=== PATIENT | female | born 1990 ===

== ENCOUNTER 2017-04-20 17:37 | Inpatient (IN) | payer MEDICAID, OTHER ==
--- NOTE | 2017-04-20 18:17 | OBADHP ---
Datetime: 04/20/2017 18:10 IP Chief Complaint Other: post dates Admit Comment, IP Provider: admit to unit and place cervidil after initial monitoring and blood work Extremities - PN: Normal Abdomen - PN: Abnormal Back - PN: Normal Breast - PN: Normal Lungs - PN: Normal Heart - PN: Normal Thyroid - PN: Normal Neurologic - PN: Normal HEENT - PN: Normal General - PN: Normal Presentation-Admit: cephalic FHR - Baseline A Provider: 150's Membranes, Provider: Intact Contraction Comments Provider: irreg Comments, ACOG Physical Exam: ABd gravid fundus at term, ext no calf tenderness Gestation - Est Wks by US: [id number] IP Chief Complaint: Uterine contractions NICHD Variability Prov Fetus A: Minimal - Undetectable to <5bpm NICHD Accel Fetus A IP Provider: [id number] NICHD Decel Fetus A IP Provider: None Dilatation, Provider: ft Effacement, Provider: none Genitourinary Exam: Normal DTRs - PN: Normal IP Adm Impression: Postterm, intrauterine IP Admit Plan: Admit to unit; Initiate labor induction protocol
[2017-04-20 18:38] VITALS: BMI 38.5
[2017-04-20] MEDS: Lactated Ringer's 1,000 ML IV SCH (18:45)
[2017-04-20 19:46] LABS: BASO % 0.2 % (0.0-2.0); EOS # 0.1 K/uL (0.0-0.7); EOS % 1.4 % (0.0-4.0); HEMOGLOBIN 12.8 g/dL (12.0-16.0); LYMPH # 1.1 K/uL (1.0-4.3); LYMPH % 15.7 % (20.0-40.0); MEAN CELL VOLUME 90.1 fl (81.0-99.0); MEAN CORPUSCULAR HGB CONC 33.3 g/dL (33.0-37.0); MEAN PLATELET VOLUME 8.6 fl (7.2-11.7); MONO # 0.7 K/uL (0.0-0.8); MONO % 9.6 % (0.0-10.0); NEUT # 5.3 K/uL (1.8-7.0); NEUT % 73.1 % (50.0-75.0); RBC 4.27 Mil/uL (3.80-5.20); WHITE BLOOD COUNT 7.3 K/uL (4.8-10.8)
[2017-04-21] MEDS: Lactated Ringer's 1,000 ML IV SCH (02:30)
[2017-04-21] MEDS ORDERED: Fentanyl/Bupivacaine HCl 250 ML EPI ONE (03:05)
--- NOTE | 2017-04-21 05:33 | OBDS ---
MATERNAL INFORMATION Estimated Blood Loss (ml): 200cc Maternal Complications: None Provider Comments: Delivered a living Baby girl appears term cried spontaneously 9/9,One loose loop of cord around the neck undone prior to full delivery. Af clear Placenta complete and intact N o lacerations or tears noted. Tolerated procedure well no complications Rectal no defects LABOR SUMMARY EDC: 04/16/2017 00:00 No. Babies in Womb: 1 LABOR INFORMATION Reason for Induction: Postterm Cervical Ripening Agents: Cervidil Group B Beta Strep: Negative Steroids Given: None Reason Steroids Not Administered: Not Applicable VAGINAL DELIVERY Episiotomy: None Laceration Extension: N/A Laceration Type: None Laceration Repair: Not Applicable Laceration Repair Note: none Sponge Count Correct: Yes Sharps Count Correct: N/A Count Comment: Pad count correct CSECTION DELIVERY Primary Indication: N/A Secondary Indication: N/A CSection Incision: N/A BABY A INFORMATION Forceps: N/A Vacuum Extraction: N/A Shoulder Dystocia : No
[2017-04-21] MEDS: Oxycodone/Acetaminophen 5/325 mg Tab PO PRN ×2 (11:47→20:38)
[2017-04-22] MEDS: Oxycodone/Acetaminophen 5/325 mg Tab PO PRN ×4 (02:38→22:27)
[2017-04-22 06:27] LABS: HEMOGLOBIN 13.9 g/dL (12.0-16.0); MEAN CELL VOLUME 89.2 fl (81.0-99.0); MEAN CORPUSCULAR HEMOGLOBIN 30.4 pg (27.0-31.0); MEAN CORPUSCULAR HGB CONC 34.1 g/dL (33.0-37.0); RBC 4.57 Mil/uL (3.80-5.20); RED CELL DISTRIBUTION WIDTH 15.9 % (11.5-14.5); WHITE BLOOD COUNT 8.1 K/uL (4.8-10.8)
--- NOTE | 2017-04-22 12:40 | OBPPN ---
Datetime: 04/22/2017 12:36 PP Pain Prov: Within normal limits PP Pain Prov comment: no SOB chest pains or leg pains PP Nausea Prov: Denies PP Flatus Prov: Yes PP BM Prov: Yes PP Breasts Prov: Normal PP Heart Prov: Normal PP Lungs Prov: Normal PP Abdomen/Uterus Prov: Abnormal PP Lochia Prov: Normal PP Vulva/Perineum Prov: Normal PP CVA Tenderness Prov: Normal PP Extremities Prov: Normal PP C/S Incision Prov: Not Applicable PP Progress Prov: Normal PP Comments Phys Exam Prov: Abd soft ND no rebound fundus firm at umb NT Ext no leg edema or calf t enderness PP Impression Prov: Normal progression PP Plan Prov: Continue present management PP Progress Note Prov: OOB and ambulation, increase po fluids and continue PP care IP PP Procedures: None Vital Signs Provider PP: Reviewed
[2017-04-23] MEDS: Oxycodone/Acetaminophen 5/325 mg Tab PO PRN ×2 (03:49→08:46)
--- NOTE | 2017-04-23 11:34 | OBPPN ---
Datetime: 04/23/2017 11:31 PP Pain Prov: Within normal limits PP Nausea Prov: Denies PP Flatus Prov: Yes PP BM Prov: No PP Breasts Prov: Normal PP Heart Prov: Normal PP Lungs Prov: Normal PP Abdomen/Uterus Prov: Normal PP Lochia Prov: Normal PP Vulva/Perineum Prov: Normal PP CVA Tenderness Prov: Normal PP Extremities Prov: Normal PP Progress Prov: Normal PP Impression Prov: Normal progression PP Plan Prov: Continue present management PP Progress Note Prov: stable ppd2 continue care dc home today IP PP Procedures: None Vital Signs Provider PP: Reviewed; Within Normal Limits
--- NOTE | 2017-04-23 11:37 | OBDCSUM ---
Datetime: 04/23/2017 11:34 Discharged to, Provider: Home Follow up at, Provider: Liset Disch Instr Diet: Regular Discharge Instructions, Provider: Routine instructions given Discharge Diagnosis, Provider: Term Delivered Discharge Time: 04/23/2017 11:34 Follow up in weeks, Provider: 5-6 weeks Disch Referrals: None Disch Activity Restrictions: No exercising; No lifting; No driving; Minimize walking; Minimize stair -climbing; No sexual activity; Nothing in vagina - [place], tampons, douche Contraception after Delivery: Undecided Datetime: 04/23/2017 10:26 Discharged to, Provider: Home Follow up at, Provider: Thierry AQUINO Instr Activity: Normal activity Disch Instr Diet: Regular Follow up in weeks, Provider: 6 weeks Disch Activity Restrictions: No exercising
== END 2017-04-23 14:00 | disposition home or self-care (01) | DRG 373 ==
LOC: H.EROB2 17:37 → H.L&D 18:30 → H.OB/GYN 04-21 16:09
PROVIDERS: ADMIT Specialist; ATTEND Specialist
PROC: 4A1HXCZ Monitoring of Products of Conception, Cardiac Rate, External Approach (ICD-10-PCS; 2017-04-20)
PROC: 10E0XZZ Delivery of Products of Conception, External Approach (ICD-10-PCS; principal; 2017-04-21)
DX: O48.0 Post-term pregnancy (principal); O69.81X0 Labor and delivery complicated by cord around neck, without compression, not applicable or unspecified; Z37.0 Single live birth; Z3A.40 40 weeks gestation of pregnancy

== ENCOUNTER 2017-06-21 19:24 | Emergency (ER) | payer OTHER ==
[2017-06-21 19:24] VITALS: BMI 38.5
[2017-06-21 19:31] VITALS: BP 114/78; PULSE 70; RESP 18; TEMP 98.1; O2SAT 99
--- NOTE | 2017-06-21 19:43 | ED PDOC ---
Lower Extremity Pain/Injury Time Seen by Provider: 06/21/17 19:36 Chief Complaint (Nursing): Lower Extremity Problem/Injury Chief Complaint (Provider): Left foot and ankle pain History Per: Patient History/Exam Limitations: no limitations Onset/Duration Of Symptoms: Mins (Prior to arrival) Current Symptoms Are (Timing): Still Present Additional Complaint(s): Mary is a 26 y/o female who presents to the ED complaining of left foot pain , s/p fall minutes prior to arrival. States she slipped while getting into the car. Patient is unable to put weight on her left leg currently. LMP was June 16. PMD: Srikanth Archibald Past Medical History Reviewed: Historical Data, Nursing Documentation, Vital Signs Vital Signs: Last Vital Signs Temp 98.1 F 06/21/17 19:29 Pulse 70 06/21/17 19:29 Resp 18 06/21/17 19:29 BP 114/78 06/21/17 19:29 Pulse Ox 99 06/21/17 19:29 - Family History Family History: States: Unknown Family Hx - Home Medications Home Medications: Ambulatory Orders Medication Instructions Recorded Vit No.126/Iron/Folic 1 tab PO DAILY MDD 1 tab 04/20/17 [Classic Tablet] oxyCODONE/Acetaminophen [Percocet 1 tab PO Q6 PRN #30 tab 04/23/17 5/325 mg Tab] Acetaminophen [Acetaminophen Extra 2 tab PO Q6 PRN #24 tablet 06/21/17 Strength] - Allergies Allergies/Adverse Reactions: Allergies Allergy/AdvReac Type Severity Reaction Status Date / Time aspirin Allergy RASH Verified 06/21/17 19:55 Review of Systems ROS Statement: Except As Marked, All Systems Reviewed And Found Negative Musculoskeletal: Positive for: Foot Pain (Left) Physical Exam - Reviewed Nursing Documentation Reviewed: Yes Vital Signs Reviewed: Yes - Physical Exam Appears: Positive for: Non-toxic, No Acute Distress Head Exam: Positive for: ATRAUMATIC, NORMAL INSPECTION, NORMOCEPHALIC Skin: Positive for: Normal Color, Warm, Dry Eye Exam: Positive for: EOMI, Normal appearance, PERRL Neck: Positive for: Normal, Painless ROM, Supple Extremity: Positive for: Tenderness (Minimal tenderness to the left lateral malleolus w/ swelling) Neurologic/Psych: Positive for: Alert, Oriented - ECG O2 Sat by Pulse Oximetry: 99 (RA) Pulse Ox Interpretation: Normal - Radiology X-Ray: Interpreted by Me, Viewed By Me Nexus Criteria: Negative (for fracture) - Progress ED Course And Treament: acetaminophen 975 mg x 1 dose Xry of foot: neg for fx xry of ankle: neg for fx Medical Decision Making Medical Decision Making: Time: 19:34 Plan: --Patient has allergy to Aspirin, will give Tylenol PO --Pending X-Rays Left Ankle and Left Foot X-Rays negative for fracture Time: 20:31 --Patient will be provided with crutches to use for the next 3 days Upon provider reevaluation patient is medically stable, and requires no further treatment in the ED at this time. Patient will be discharged home. Counseling was provided and all questions were answered regarding diagnosis and need for follow up with PMD. There is agreement to discharge plan. Return if symptoms persist or worsen. Scribe Attestation: Documented by Shante Summers, acting as a scribe for Fredy Oleary PA-C Provider Scribe Attestation: All medical record entries made by the Scribe were at my direction and personally dictated by me. I have reviewed the chart and agree that the record accurately reflects my personal performance of the history, physical exam, medical decision making, and the department course for this patient. I have also personally directed, reviewed, and agree with the discharge instructions and disposition. Disposition - Clinical Impression Clinical Impression: Foot sprain - Patient ED Disposition Is Patient to be Admitted: No - Disposition Referrals: Podiatry Clinic [Outside] Disposition: Routine/Home Disposition Time: 20:33 Condition: FAIR Prescriptions: Acetaminophen [Acetaminophen Extra Strength] 2 tab PO Q6 PRN #24 tablet PRN Reason: Pain, Severe (8-10) Instructions: Foot Sprain (ED) Forms: [employer] (Mexican) Print Language: HEBREW
--- NOTE | 2017-06-22 10:43 | RAD ---
PROCEDURE: Left Foot Radiographs. HISTORY: injury COMPARISON: None. FINDINGS: BONES: Normal. No fracture. JOINTS: Normal. SOFT TISSUES: Normal. OTHER FINDINGS: None. IMPRESSION: No evidence of acute fracture or dislocation.
--- NOTE | 2017-06-22 10:44 | RAD ---
PROCEDURE: Left Ankle Radiographs. HISTORY: ankle pain COMPARISON: None FINDINGS: BONES: Normal. No fracture. JOINTS: Normal. No osteoarthritis. Ankle mortise maintained. Talar dome intact SOFT TISSUES: Mild soft tissue swelling. OTHER FINDINGS: None. IMPRESSION: No evidence of acute fracture or dislocation.
== END 2017-06-21 21:21 | disposition home or self-care (01) ==
LOC: H.ER 19:24
DX: S93.602A Unspecified sprain of left foot, initial encounter (principal); W19.XXXA Unspecified fall, initial encounter; Y92.89 Other specified places as the place of occurrence of the external cause